=== PATIENT | male | born 1980 | race African-American/Black ===

== ENCOUNTER 2017-02-04 11:18 | Emergency (ER) | payer OTHER ==
[~2017-02-04] VITALS: Ht 160 cm; Wt 79.4 kg
[2017-02-04] MEDS ORDERED: AMOX500T5 PO (11:34)
[2017-02-04] MEDS ORDERED: METRONIDAZOLE500 MG PO (11:34)
[2017-02-04] MEDS ORDERED: CLARITHROMYC500 M1 OR (11:35)
[2017-02-04] MEDS ORDERED: BUSPIRONE10 MG PO (11:35)
[2017-02-04] MEDS ORDERED: OMEPRAZOLE20 M2 OR (11:36)
[2017-02-04 12:07] LABS: PLATELET COUNT 230 K/uL (142-355)
[2017-02-04 12:12] LABS: POTASSIUM 3.1 mmol/L (3.6-5.2); SODIUM 135 mmol/L (136-145)
[2017-02-04 16:22] VITALS: BP 138/80; TEMP 98.3
== END 2017-02-04 16:10 | disposition home or self-care (01) ==
LOC: ED 11:18
DX: R10.9 Unspecified abdominal pain (principal); K27.9 Peptic ulcer, site unspecified, unspecified as acute or chronic, without hemorrhage or perforation
CPT/HCPCS: 80053; 82150; 83690; 85027; 99283